=== PATIENT | female | born 1995 ===

== ENCOUNTER 2021-11-04 18:00 | Emergency (ER) | payer SELFPAY ==
[2021-11-04] MEDS ORDERED: BENZOCAINE 20% TOP SPRAY 0.5 ML UNIT DOSE MM NR (23:45)
[2021-11-04] MEDS ORDERED: LIDOCAINE 1%/EPINEPHRINE 1:100,000 VIAL (20 ML) INFILTRATI NR (23:45)
[2021-11-04] MEDS ORDERED: dexAMETHasone 20 MG/5 ML VIAL IM STA (23:53)
--- NOTE | 2021-11-04 23:57 | Emergency Department Report ---
Minor Respiratory - HPI Chief Complaint: Sore Throat Stated Complaint: STREP THROAT Time Seen by Provider: 11/04/21 23:42 Duration: 4 Days Pain Location: Throat Severity: severe Minor Respiratory: Yes Sore Throat, Yes Able to Tolerate Fluids, Yes Fever, No Rhinorrhea, No Ear Pain, No Cough, No Sick Contacts, No Hemoptysis, No Chest Pain, No Shortness of Breath Other History: Chief complaint: Sore throat. HPI: This is a 26-year-old female without signficant past medical history who presents with sore throat for 4 days. Severe pain with swallowing. She has fever. She denies cough. She denies shortness of breath. She has mild difficulty with swallowing. ED Review of Systems ROS: Stated complaint: STREP THROAT Other details as noted in HPI Comment: All other systems reviewed and negative Constitutional: fever ENT: throat pain Respiratory: denies: cough, orthopnea Gastrointestinal: denies: abdominal pain, nausea, vomiting ED Past Medical Hx - Past Medical History Previous Medical History?: No - Surgical History Past Surgical History?: Yes Hx Open Heart Surgery: Yes (@ 9months) - Social History Smoking Status: Never Smoker Substance Use Type: None - Medications Home Medications: Home Medications Medication Instructions Recorded Confirmed Last Taken Type Amoxicillin/Potassium Clav 1 each PO BID 10 Days #20 tablet 11/05/21 Unknown Rx [Augmentin 875-125 Tablet] Ibuprofen [Motrin 800 MG tab] 800 mg PO Q6H PRN #20 tablet 11/05/21 Unknown Rx Minor Respiratory Exam - Exam General: Vital signs noted. No distress. Alert and acting appropriately. Muffled voice, tolerating secretions. HEENT: Yes Pharyngeal Erythema (Right peritonsillar abscess uvula deviated with exudate, left tonsil slightly edematous with erythema, right tonsil edematous 4 cm in diameter with soft palatal swelling), Yes Pharyngeal Exudates, Yes Moist Mucous Membranes, No Rhinorrhea, No Conjuctival Injection Neck: Yes Adenopathy, Yes Supple Lungs: Yes Good Air Exchange, No Wheezes, No Ronchi, No Stridor, No Cough, No Labored Respirations, No Retractions, No Use of Accessory Muscles Heart: Yes Regular, No Murmur Abdomen: No Tenderness, No Peritoneal Signs Skin: No Rash, No Edema Neurologic: Alert and oriented, no deficits. Musculoskeletal: Unremarkable. ED Course Vital Signs 11/04/21 21:36 Temperature 100.2 F H Pulse Rate 115 H Respiratory 20 Rate Blood Pressure 126/53 O2 Sat by Pulse 98 Oximetry - I & D Right Face Type of Procedure: Complex Site: Right peritonsillar abscess aspiration needle Blade Size: Needle aspiration Progress: Needle aspiration of right peritonsillar abscess Written informed consent witnessed by nurse explained the risk of parents benefits explained to patient. I use Hurricaine spray for topical anesthesia. I used 3 mL of 1% lidocaine with epinephrine for local regional anesthesia. Regional anesthesia administered via 10 cc syringe with 26-gauge needle. Needle had plastic guard covering the majority needle with dissection of the 1 cm distal tip. I used 18-gauge needle with a plastic guard exposing only the distal 1 cm tip to aspirate at the medial portion of the abscess as well as the soft palatal portion. Needle attached to a 10 cc syringe. Right tonsil now comparable to the size of the left tonsil. Patient's voice much improved. She had only minor bleeding. She was able to tolerate water prior to her discharge. She also tolerated p.o. ibuprofen and p.o. Augmentin. ED Medical Decision Making - Medical Decision Making Right peritonsillar abscess: While prepping for incision and drainage, patient had large amount of pus expressed. I witnessed her spitting purulent material into napkin. Immediately thereafter her voice improved. Abscess markedly decreased in size. On reexamination. Also saw active purulent drainage. Patient passionately asked to to proceed with needle aspiration. With 2 attempts of aspiration at the soft palate in head of abscess, unable to aspirate purulence. I I suspect the majority of the pus was expressed spontaneously with slight agitation. Patient use Yonker suctioning prior to procedure. Anticipate good outcome with antibiotics. Patient given referral to ENT. She understands return if symptoms progress. Prescribed Augmentin. Prescribed ibuprofen. Ms. Crowley was observed 1 hour after procedure. She tolerated p.o. Augmentin in the emergency department she also tolerated ibuprofen. She understands return precautions. Discharged home. Critical care attestation.: If time is entered above; I have spent that time in minutes in the direct care of this critically ill patient, excluding procedure time. ED Disposition Clinical Impression: Peritonsillar abscess, Streptococcal pharyngitis Disposition: HOME / SELF CARE / HOMELESS Is pt being admited?: No Does the pt Need Aspirin: No Condition: Stable Instructions: Peritonsillar Abscess, [id number] Prescriptions: Amoxicillin/Potassium Clav [Augmentin 875-125 Tablet] 1 each PO BID 10 Days #20 tablet Ibuprofen [Motrin 800 MG tab] 800 mg PO Q6H PRN #20 tablet PRN Reason: Pain , Severe (7-10) Referrals: DANIELLE BALDERRAMA MD [Staff Physician] - 3-5 Days STEFANIE EMERY MD [Staff Physician] - 3-5 Days
[2021-11-05] MEDS ORDERED: IBUPROFEN ORAL LIQD 100 MG/5 ML ORAL.LIQD PO STA (00:21)
[2021-11-05] MEDS ORDERED: AMOXICILLIN/K CLAV 875/125MG TAB PO STA (01:25)
[2021-11-05 02:27] VITALS: BP 128/72
== END 2021-11-05 02:25 | disposition home or self-care (01) ==
LOC: ED 18:00
DX: J36 Peritonsillar abscess (principal)
CPT/HCPCS: 42700; 87430; 96372; 99283; J1100; J3490